=== PATIENT | female | born 1975 | race Caucasian/White ===

== ENCOUNTER → 2020-10-07 | Outpatient (CLI) | payer BC, OTHER ==
[~2020-10-07] MED LIST: COLACE100 MG PO; IBUPROFEN800 MG PO; MEGA BIOTIN10000 MCG PO; MIRALAX 119 GR119 GM GT; PERCOCET 5-3251 EACH PO; SPRINTEC 28 DA1 EACH PO
[2020-10-07 09:34] LABS: HEMOGLOBIN 13.7 gm/dl (12.3-15.3); RED BLOOD COUNT 3.98 M/UL (4.00-5.10)
== END ==
LOC: OPSV2 08:00
PROVIDERS: Obstetrics & Gynecology
DX: Z01.818 Encounter for other preprocedural examination (principal); N93.9 Abnormal uterine and vaginal bleeding, unspecified
CPT/HCPCS: 36415; 81001; 85025; 93005

== ENCOUNTER 2020-10-14 06:23 | Day surgery (SDC) | payer BC, OTHER ==
[~2020-10-14] VITALS: Ht 162.6 cm; Wt 64.9 kg
[~2020-10-14 06:23] MED LIST changes: -COLACE100 MG PO; -IBUPROFEN800 MG PO; -MEGA BIOTIN10000 MCG PO; -MIRALAX 119 GR119 GM GT; -PERCOCET 5-3251 EACH PO
[2020-10-15] MEDS ORDERED: COLACE100 MG PO (09:07)
[2020-10-15] MEDS ORDERED: MIRALAX 119 GR119 GM GT (09:07)
[2020-10-15] MEDS ORDERED: PERCOCET 5-3251 EACH PO (09:07)
[2020-10-15] MEDS ORDERED: IBUPROFEN800 MG PO (09:07)
[2020-10-15] MEDS ORDERED: MEGA BIOTIN10000 MCG PO (09:14)
== END 2020-10-15 11:48 | disposition home or self-care (01) ==
LOC: OR 06:23 → OB 11:47 → OR 10-15 11:48
PROVIDERS: Obstetrics & Gynecology
DX: D25.1 Intramural leiomyoma of uterus (principal); D25.0 Submucous leiomyoma of uterus; N72 Inflammatory disease of cervix uteri; N87.9 Dysplasia of cervix uteri, unspecified; N73.6 Female pelvic peritoneal adhesions (postinfective); Z79.899 Other long term (current) drug therapy
CPT/HCPCS: 36415; 84703; 85014; 85018; 96360; 96361; 96367; 96374; J0690; J1100; J1885; J2001; J2250; J2270; J2405; J2704; J2710; J2765; J3010; J7120